=== PATIENT | female | born 1980 | race Caucasian/White ===

== ENCOUNTER 2021-10-16 12:31 | Inpatient (IN) | payer OTHER ==
[2021-10-16 14:00] VITALS: BMI 18.6
[2021-10-16] MEDS ORDERED: ACETAMINOPHEN 325 MG TABLET (FP) PO PRN ×2 (16:31)
[2021-10-16] MEDS ORDERED: IBUPROFEN 600 MG TABLET (FP) PO PRN (16:31)
[2021-10-16] MEDS ORDERED: chlordiazePOXIDE HCL 25 MG CAPSULE PO PRN (16:31)
[2021-10-16] MEDS ORDERED: MAG HYDROX/AL HYDROX/SIMETH 30 ML UNIT-DOSE CUP PO PRN (16:31)
[2021-10-16] MEDS ORDERED: DICYCLOMINE HCL 10 MG CAPSULE PO PRN (16:31)
[2021-10-16] MEDS ORDERED: BISMUTH SUBSALICYLATE 524 MG/30 ML PO PRN (16:31)
[2021-10-16] MEDS ORDERED: MAGNESIUM HYDROX 2400MG/30ML ORAL SUSPENSION 30 ML CUP PO PRN (16:31)
[2021-10-16] MEDS ORDERED: MAGNESIUM CITRATE 300 ML BOTTLE PO PRN (16:31)
[2021-10-16] MEDS ORDERED: METHOCARBAMOL 500 MG TABLET PO PRN (16:31)
[2021-10-16] MEDS ORDERED: BENZOCAINE/MENTHOL (CHLORASEPTIC ) LOZENGE MM PRN (16:31)
[2021-10-16] MEDS ORDERED: LOPERAMIDE HCL 2 MG CAPSULE PO PRN (16:31)
[2021-10-16] MEDS ORDERED: IBUPROFEN 400 MG TABLET (FP) PO PRN (16:31)
[2021-10-16] MEDS ORDERED: methaDONE HCL 10 MG TABLET PO ONE (18:00)
[2021-10-16] MEDS: chlordiazePOXIDE HCL 25 MG CAPSULE PO SCH ×2 (18:13→22:26)
[2021-10-16] MEDS: hydrOXYzine PAMOATE 25 MG CAPSULE (FP) PO SCH ×2 (18:13→22:26)
[2021-10-16] MEDS: ONDANSETRON *ODT* 4 MG TABLET SL PRN (18:18)
[2021-10-16] MEDS: MELATONIN 5 MG TABLETS PO SCH (22:26)
[2021-10-16] MEDS: THIAMINE HCL 100 MG TABLET (FP) PO SCH (22:26)
[2021-10-17] MEDS: chlordiazePOXIDE HCL 25 MG CAPSULE PO SCH ×4 (07:07→22:59)
[2021-10-17] MEDS: hydrOXYzine PAMOATE 25 MG CAPSULE (FP) PO SCH (07:08)
[2021-10-17] MEDS ORDERED: hydrOXYzine PAMOATE 25 MG CAPSULE (FP) PO PRN (09:58)
[2021-10-17] MEDS ORDERED: DULoxetine HCL 30 MG CAPSULE.DR PO SCH (10:00)
[2021-10-17 10:33] LABS: HEMATOCRIT 34.7 % (32.4-45.2); HEMOGLOBIN 11.7 GM/dL (10.7-15.3); MCH 30.8 pg (25.7-33.7); MCHC 33.9 g/dl (32.0-36.0); MEAN CELL VOLUME 90.9 fl (80-96); MEAN PLT VOLUME 8.5 fl (7.5-11.1); PLATELET COUNT 236 10^3/uL (134-434); RBC 3.81 M/mm3 (3.60-5.2); RDW 13.1 % (11.6-15.6); WHITE BLOOD COUNT 4.2 K/mm3 (4.0-10.0)
[2021-10-17 10:44] LABS: CALCIUM 8.2 mg/dL (8.5-10.1)
[2021-10-17 10:45] LABS: ALBUMIN 3.5 g/dl (3.4-5.0); BLOOD UREA NITROGEN 22.8 mg/dL (7-18)
[2021-10-17 10:48] LABS: CREATININE 0.9 mg/dL (0.55-1.3)
[2021-10-17 10:49] LABS: BILIRUBIN,TOTAL 0.9 mg/dL (0.2-1)
[2021-10-17] MEDS ORDERED: methaDONE HCL 10 MG TABLET PO ONE (11:40)
[2021-10-17] MEDS: NICOTINE 10 MG CARTRIDGE (INHALER) IH PRN (11:42)
[2021-10-17] MEDS ORDERED: methaDONE HCL 10 MG TABLET ONE (11:52)
[2021-10-17] MEDS ORDERED: methaDONE HCL 40 MG DISPERSABLE TABLET ONE (11:53)
[2021-10-17] MEDS: PRENATAL VITAMINS W/ FOLIC ACID TABLET (FP) PO SCH (11:56)
[2021-10-17] MEDS: ONDANSETRON *ODT* 4 MG TABLET SL PRN (17:52)
[2021-10-17] MEDS: THIAMINE HCL 100 MG TABLET (FP) PO SCH (22:07)
[2021-10-17] MEDS: MELATONIN 5 MG TABLETS PO SCH (22:07)
[2021-10-18] MEDS ORDERED: methaDONE HCL 10 MG TABLET ONE (04:52)
[2021-10-18] MEDS ORDERED: methaDONE HCL 40 MG DISPERSABLE TABLET ONE (04:52)
[2021-10-18] MEDS: chlordiazePOXIDE HCL 25 MG CAPSULE PO SCH ×4 (05:59→22:17)
[2021-10-18] MEDS ORDERED: methaDONE HCL 40 MG DISPERSABLE TABLET PO SCH (06:00)
[2021-10-18] MEDS: DULoxetine HCL 30 MG CAPSULE.DR PO SCH (10:15)
[2021-10-18] MEDS: PRENATAL VITAMINS W/ FOLIC ACID TABLET (FP) PO SCH (10:15)
[2021-10-18] MEDS: NICOTINE 10 MG CARTRIDGE (INHALER) IH PRN (19:39)
[2021-10-18] MEDS: MELATONIN 5 MG TABLETS PO SCH (22:17)
[2021-10-18] MEDS: THIAMINE HCL 100 MG TABLET (FP) PO SCH (22:17)
[2021-10-19] MEDS ORDERED: chlordiazePOXIDE HCL 10 MG CAPSULE PO PRN
[2021-10-19] MEDS ORDERED: methaDONE HCL 40 MG DISPERSABLE TABLET ONE (04:24)
[2021-10-19] MEDS ORDERED: methaDONE HCL 10 MG TABLET ONE (04:24)
[2021-10-19] MEDS: chlordiazePOXIDE HCL 10 MG CAPSULE PO SCH ×4 (05:46→23:43)
[2021-10-19] MEDS: DULoxetine HCL 30 MG CAPSULE.DR PO SCH (12:26)
[2021-10-19] MEDS: PRENATAL VITAMINS W/ FOLIC ACID TABLET (FP) PO SCH (12:26)
[2021-10-19] MEDS: ONDANSETRON *ODT* 4 MG TABLET SL PRN (21:39)
[2021-10-19] MEDS: MELATONIN 5 MG TABLETS PO SCH (23:43)
[2021-10-19] MEDS: THIAMINE HCL 100 MG TABLET (FP) PO SCH (23:43)
[2021-10-20] MEDS ORDERED: methaDONE HCL 40 MG DISPERSABLE TABLET ONE (04:27)
[2021-10-20] MEDS ORDERED: methaDONE HCL 10 MG TABLET ONE (04:27)
[2021-10-20] MEDS: chlordiazePOXIDE HCL 10 MG CAPSULE PO SCH ×2 (05:29→18:00)
[2021-10-20] MEDS: DULoxetine HCL 30 MG CAPSULE.DR PO SCH (09:57)
[2021-10-20] MEDS: NICOTINE 10 MG CARTRIDGE (INHALER) IH PRN (09:57)
[2021-10-20] MEDS: PRENATAL VITAMINS W/ FOLIC ACID TABLET (FP) PO SCH (09:57)
[2021-10-20] MEDS ORDERED: CALCIUM CARBONATE 650 MG TABLET PO ONE (20:00)
[2021-10-20] MEDS: THIAMINE HCL 100 MG TABLET (FP) PO SCH (23:10)
[2021-10-20] MEDS: MELATONIN 5 MG TABLETS PO SCH (23:10)
[2021-10-21] MEDS ORDERED: methaDONE HCL 40 MG DISPERSABLE TABLET ONE (04:10)
[2021-10-21] MEDS ORDERED: methaDONE HCL 10 MG TABLET ONE (04:10)
[2021-10-21] MEDS ORDERED: chlordiazePOXIDE HCL 10 MG CAPSULE PO ONE (05:00)
[2021-10-21] MEDS ORDERED: CALCIUM CARBONATE 650 MG TABLET PO SCH (07:00)
[2021-10-21] MEDS: PRENATAL VITAMINS W/ FOLIC ACID TABLET (FP) PO SCH (10:18)
[2021-10-21] MEDS: DULoxetine HCL 30 MG CAPSULE.DR PO SCH (10:18)
[2021-10-21] MEDS: NICOTINE 10 MG CARTRIDGE (INHALER) IH PRN (10:19)
[2021-10-21] MEDS: ONDANSETRON *ODT* 4 MG TABLET SL PRN (12:24)
[2021-10-21 12:30] VITALS: RESP 18
[2021-10-21 17:20] VITALS: BP 97/51; PULSE 53; TEMP 97.3
== END 2021-10-21 21:28 | disposition other institution (70) | DRG 773 ==
LOC: YASAS 12:31 → Y6N 16:47 → Y3N 10-17 10:23 → Y6N 10-17 10:23 → Y3N 10-17 11:15
PROVIDERS: ADMIT Allergy & Immunology; ATTEND Surgery
PROC: HZ2ZZZZ Detoxification Services for Substance Abuse Treatment (ICD-10-PCS; principal; 2021-10-16)
DX: F13.230 Sedative, hypnotic or anxiolytic dependence with withdrawal, uncomplicated (principal); F11.20 Opioid dependence, uncomplicated; F14.20 Cocaine dependence, uncomplicated; F17.210 Nicotine dependence, cigarettes, uncomplicated; F41.9 Anxiety disorder, unspecified; F31.9 Bipolar disorder, unspecified; R79.89 Other specified abnormal findings of blood chemistry; E83.51 Hypocalcemia; U07.0 Vaping-related disorder; Z86.73 Personal history of transient ischemic attack (TIA), and cerebral infarction without residual deficits; Z56.0 Unemployment, unspecified
CPT/HCPCS: 36415; 80053; 81025; 85027; 86780; 87811; C9803-CS; Q0162; U0003; U0005

== ENCOUNTER 2021-10-21 22:00 | Inpatient (IN) | payer OTHER ==
[2021-10-22] MEDS ORDERED: MAG HYDROX/AL HYDROX/SIMETH 30 ML UNIT-DOSE CUP PO PRN (00:04)
[2021-10-22] MEDS ORDERED: P-EPHED 60MG/TRIPROLIDI 2.5MG TABLET PO PRN (00:04)
[2021-10-22] MEDS ORDERED: MAGNESIUM CITRATE 300 ML BOTTLE PO PRN (00:04)
[2021-10-22] MEDS ORDERED: BENZOCAINE/MENTHOL (CHLORASEPTIC ) LOZENGE MM PRN (00:04)
[2021-10-22] MEDS ORDERED: hydrOXYzine PAMOATE 25 MG CAPSULE (FP) PO PRN (00:04)
[2021-10-22] MEDS ORDERED: NICOTINE POLACRILEX 2 MG GUM BUC PRN (00:04)
[2021-10-22] MEDS ORDERED: ACETAMINOPHEN 325 MG TABLET (FP) PO PRN (00:04)
[2021-10-22] MEDS ORDERED: LOPERAMIDE HCL 2 MG CAPSULE PO PRN (00:04)
[2021-10-22] MEDS ORDERED: guaiFENesin 200 MG/10 ML 10 ML UNIT-DOSE CUPS PO PRN (00:04)
[2021-10-22] MEDS ORDERED: methaDONE HCL 10 MG TABLET PO SCH (09:00)
[2021-10-22] MEDS ORDERED: methaDONE HCL 10 MG TABLET ONE (09:04)
[2021-10-22] MEDS ORDERED: methaDONE HCL 40 MG DISPERSABLE TABLET ONE (09:04)
[2021-10-22] MEDS: PRENATAL VITAMINS W/ FOLIC ACID TABLET (FP) PO SCH (09:12)
[2021-10-22] MEDS ORDERED: TUBERCULIN PPD 5 TU/0.1ML VIAL ID ONE (10:21)
[2021-10-22] MEDS ORDERED: DULoxetine HCL 30 MG CAPSULE.DR PO ONE (11:57)
[2021-10-22] MEDS: ARIPiprazole 10 MG TABLET PO SCH (12:06)
[2021-10-22] MEDS: DULoxetine HCL 60 MG CAPSULE.DR PO SCH (12:07)
[2021-10-22] MEDS: THIAMINE HCL 100 MG TABLET (FP) PO SCH (21:03)
[2021-10-22] MEDS ORDERED: MELATONIN 5 MG TABLETS PO SCH (22:00)
[2021-10-22] MEDS ORDERED: SUVOREXANT 10 MG TABLET PO PRN (22:00)
[2021-10-22] MEDS: CALCIUM (OYSTER SHELL) 500 MG TABLET (FP) PO SCH (23:00)
[2021-10-23] MEDS: ONDANSETRON *ODT* 4 MG TABLET SL PRN (11:32)
[2021-10-23] MEDS: DULoxetine HCL 60 MG CAPSULE.DR PO SCH (12:07)
[2021-10-23] MEDS: ARIPiprazole 10 MG TABLET PO SCH (12:07)
[2021-10-23] MEDS: PRENATAL VITAMINS W/ FOLIC ACID TABLET (FP) PO SCH (12:07)
[2021-10-23] MEDS: THIAMINE HCL 100 MG TABLET (FP) PO SCH (23:21)
[2021-10-23] MEDS: CALCIUM (OYSTER SHELL) 500 MG TABLET (FP) PO SCH (23:21)
[2021-10-24] MEDS: IBUPROFEN 400 MG TABLET (FP) PO PRN (06:46)
[2021-10-24] MEDS ORDERED: DULoxetine HCL 30 MG CAPSULE.DR PO ONE (08:07)
[2021-10-24] MEDS: PRENATAL VITAMINS W/ FOLIC ACID TABLET (FP) PO SCH (10:02)
[2021-10-24] MEDS: ARIPiprazole 10 MG TABLET PO SCH (10:02)
[2021-10-24] MEDS: DULoxetine HCL 60 MG CAPSULE.DR PO SCH (10:03)
[2021-10-24] MEDS: ONDANSETRON *ODT* 4 MG TABLET SL PRN (10:05)
[2021-10-24] MEDS: THIAMINE HCL 100 MG TABLET (FP) PO SCH (21:30)
[2021-10-24] MEDS: CALCIUM (OYSTER SHELL) 500 MG TABLET (FP) PO SCH (21:30)
[2021-10-25] MEDS ORDERED: DULoxetine HCL 30 MG CAPSULE.DR PO ONE (09:00)
[2021-10-25] MEDS: PRENATAL VITAMINS W/ FOLIC ACID TABLET (FP) PO SCH (10:10)
[2021-10-25] MEDS: ARIPiprazole 10 MG TABLET PO SCH (10:10)
[2021-10-25] MEDS: DULoxetine HCL 60 MG CAPSULE.DR PO SCH (10:11)
[2021-10-25] MEDS: CALCIUM (OYSTER SHELL) 500 MG TABLET (FP) PO SCH (21:32)
[2021-10-25] MEDS: THIAMINE HCL 100 MG TABLET (FP) PO SCH (21:32)
[2021-10-25] MEDS: SUVOREXANT 10 MG TABLET PO PRN (21:33)
[2021-10-25] MEDS: MAGNESIUM HYDROX 2400MG/30ML ORAL SUSPENSION 30 ML CUP PO PRN (21:35)
[2021-10-25] MEDS: NICOTINE 10 MG CARTRIDGE (INHALER) IH PRN (22:07)
[2021-10-26] MEDS: MAGNESIUM HYDROX 2400MG/30ML ORAL SUSPENSION 30 ML CUP PO PRN (06:47)
[2021-10-26] MEDS ORDERED: DULoxetine HCL 30 MG CAPSULE.DR PO ONE (09:09)
[2021-10-26] MEDS: ARIPiprazole 10 MG TABLET PO SCH (09:58)
[2021-10-26] MEDS: PRENATAL VITAMINS W/ FOLIC ACID TABLET (FP) PO SCH (09:58)
[2021-10-26] MEDS: DULoxetine HCL 60 MG CAPSULE.DR PO SCH (09:59)
[2021-10-26] MEDS: THIAMINE HCL 100 MG TABLET (FP) PO SCH (21:35)
[2021-10-26] MEDS: SUVOREXANT 10 MG TABLET PO PRN (21:35)
[2021-10-26] MEDS: CALCIUM (OYSTER SHELL) 500 MG TABLET (FP) PO SCH (21:35)
[2021-10-27] MEDS: ONDANSETRON *ODT* 4 MG TABLET SL PRN (03:48)
[2021-10-27] MEDS ORDERED: ONDANSETRON *ODT* 4 MG TABLET SL ONE (04:05)
[2021-10-27] MEDS ORDERED: DULoxetine HCL 30 MG CAPSULE.DR PO ONE (09:03)
[2021-10-27] MEDS: ARIPiprazole 10 MG TABLET PO SCH (10:01)
[2021-10-27] MEDS: PRENATAL VITAMINS W/ FOLIC ACID TABLET (FP) PO SCH (10:01)
[2021-10-27] MEDS: DULoxetine HCL 60 MG CAPSULE.DR PO SCH (10:02)
[2021-10-27] MEDS: NICOTINE 10 MG CARTRIDGE (INHALER) IH PRN (14:48)
[2021-10-27] MEDS: THIAMINE HCL 100 MG TABLET (FP) PO SCH (22:07)
[2021-10-27] MEDS: CALCIUM (OYSTER SHELL) 500 MG TABLET (FP) PO SCH (22:07)
[2021-10-28] MEDS ORDERED: ARIPiprazole 5 MG TABLET ONE (09:11)
[2021-10-28] MEDS: DULoxetine HCL 60 MG CAPSULE.DR PO SCH (10:27)
[2021-10-28] MEDS: ARIPiprazole 10 MG TABLET PO SCH (10:27)
[2021-10-28] MEDS: PRENATAL VITAMINS W/ FOLIC ACID TABLET (FP) PO SCH (10:27)
[2021-10-28] MEDS: NICOTINE 10 MG CARTRIDGE (INHALER) IH PRN (10:51)
[2021-10-28] MEDS: THIAMINE HCL 100 MG TABLET (FP) PO SCH (21:44)
[2021-10-28] MEDS: CALCIUM (OYSTER SHELL) 500 MG TABLET (FP) PO SCH (21:44)
[2021-10-28] MEDS ORDERED: SUVOREXANT 10 MG TABLET PO PRN (22:00)
[2021-10-29] MEDS: ARIPiprazole 10 MG TABLET PO SCH (10:23)
[2021-10-29] MEDS: DULoxetine HCL 60 MG CAPSULE.DR PO SCH (10:23)
[2021-10-29] MEDS: PRENATAL VITAMINS W/ FOLIC ACID TABLET (FP) PO SCH (10:23)
[2021-10-29] MEDS: NICOTINE 10 MG CARTRIDGE (INHALER) IH PRN (10:59)
[2021-10-29] MEDS: CALCIUM (OYSTER SHELL) 500 MG TABLET (FP) PO SCH (21:33)
[2021-10-29] MEDS: THIAMINE HCL 100 MG TABLET (FP) PO SCH (21:33)
[2021-10-30] MEDS: PRENATAL VITAMINS W/ FOLIC ACID TABLET (FP) PO SCH (10:01)
[2021-10-30] MEDS: ARIPiprazole 10 MG TABLET PO SCH (10:02)
[2021-10-30] MEDS: DULoxetine HCL 60 MG CAPSULE.DR PO SCH (10:02)
[2021-10-30] MEDS: CALCIUM (OYSTER SHELL) 500 MG TABLET (FP) PO SCH (21:47)
[2021-10-30] MEDS: THIAMINE HCL 100 MG TABLET (FP) PO SCH (21:47)
[2021-10-31] MEDS: PRENATAL VITAMINS W/ FOLIC ACID TABLET (FP) PO SCH (10:21)
[2021-10-31] MEDS: ARIPiprazole 10 MG TABLET PO SCH (10:22)
[2021-10-31] MEDS: DULoxetine HCL 60 MG CAPSULE.DR PO SCH (10:22)
[2021-10-31] MEDS: THIAMINE HCL 100 MG TABLET (FP) PO SCH (21:51)
[2021-10-31] MEDS: CALCIUM (OYSTER SHELL) 500 MG TABLET (FP) PO SCH (21:51)
[2021-10-31] MEDS ORDERED: SUVOREXANT 5 MG TABLET PO PRN (22:00)
[2021-11-01] MEDS: ARIPiprazole 10 MG TABLET PO SCH (10:26)
[2021-11-01] MEDS: PRENATAL VITAMINS W/ FOLIC ACID TABLET (FP) PO SCH (10:26)
[2021-11-01] MEDS: DULoxetine HCL 60 MG CAPSULE.DR PO SCH (10:27)
[2021-11-01] MEDS: CALCIUM (OYSTER SHELL) 500 MG TABLET (FP) PO SCH (21:48)
[2021-11-01] MEDS: THIAMINE HCL 100 MG TABLET (FP) PO SCH (21:48)
[2021-11-02] MEDS ORDERED: DULoxetine HCL 30 MG CAPSULE.DR PO ONE (09:06)
[2021-11-02] MEDS: PRENATAL VITAMINS W/ FOLIC ACID TABLET (FP) PO SCH (10:37)
[2021-11-02] MEDS: DULoxetine HCL 60 MG CAPSULE.DR PO SCH (10:38)
[2021-11-02] MEDS: ARIPiprazole 10 MG TABLET PO SCH (10:38)
[2021-11-02] MEDS: THIAMINE HCL 100 MG TABLET (FP) PO SCH (22:12)
[2021-11-02] MEDS: CALCIUM (OYSTER SHELL) 500 MG TABLET (FP) PO SCH (22:12)
[2021-11-03] MEDS ORDERED: DULoxetine HCL 30 MG CAPSULE.DR PO ONE (09:14)
[2021-11-03] MEDS: PRENATAL VITAMINS W/ FOLIC ACID TABLET (FP) PO SCH (10:15)
[2021-11-03] MEDS: ARIPiprazole 10 MG TABLET PO SCH (10:15)
[2021-11-03] MEDS: DULoxetine HCL 60 MG CAPSULE.DR PO SCH (10:16)
[2021-11-03] MEDS ORDERED: SUVOREXANT 5 MG TABLET PO PRN (22:00)
[2021-11-03] MEDS: THIAMINE HCL 100 MG TABLET (FP) PO SCH (22:44)
[2021-11-03] MEDS: CALCIUM (OYSTER SHELL) 500 MG TABLET (FP) PO SCH (22:44)
[2021-11-04] MEDS ORDERED: ARIPiprazole 5 MG TABLET ONE (09:24)
[2021-11-04] MEDS: PRENATAL VITAMINS W/ FOLIC ACID TABLET (FP) PO SCH (10:33)
[2021-11-04] MEDS: DULoxetine HCL 60 MG CAPSULE.DR PO SCH (10:33)
[2021-11-04] MEDS: ARIPiprazole 10 MG TABLET PO SCH (10:34)
[2021-11-04] MEDS: CALCIUM (OYSTER SHELL) 500 MG TABLET (FP) PO SCH (21:59)
[2021-11-04] MEDS: THIAMINE HCL 100 MG TABLET (FP) PO SCH (21:59)
[2021-11-05] MEDS: DULoxetine HCL 60 MG CAPSULE.DR PO SCH (10:20)
[2021-11-05] MEDS: ARIPiprazole 10 MG TABLET PO SCH (10:20)
[2021-11-05] MEDS: PRENATAL VITAMINS W/ FOLIC ACID TABLET (FP) PO SCH (10:20)
[2021-11-05] MEDS: THIAMINE HCL 100 MG TABLET (FP) PO SCH (22:03)
[2021-11-05] MEDS: CALCIUM (OYSTER SHELL) 500 MG TABLET (FP) PO SCH (22:03)
[2021-11-06] MEDS ORDERED: DULoxetine HCL 30 MG CAPSULE.DR PO ONE (08:43)
[2021-11-06] MEDS: PRENATAL VITAMINS W/ FOLIC ACID TABLET (FP) PO SCH (10:18)
[2021-11-06] MEDS: DULoxetine HCL 60 MG CAPSULE.DR PO SCH (10:19)
[2021-11-06] MEDS: ARIPiprazole 10 MG TABLET PO SCH (10:19)
[2021-11-06] MEDS: CALCIUM (OYSTER SHELL) 500 MG TABLET (FP) PO SCH (21:45)
[2021-11-06] MEDS: THIAMINE HCL 100 MG TABLET (FP) PO SCH (21:46)
[2021-11-07] MEDS ORDERED: DULoxetine HCL 30 MG CAPSULE.DR PO ONE (09:20)
[2021-11-07] MEDS: ARIPiprazole 10 MG TABLET PO SCH (10:14)
[2021-11-07] MEDS: PRENATAL VITAMINS W/ FOLIC ACID TABLET (FP) PO SCH (10:14)
[2021-11-07] MEDS: DULoxetine HCL 60 MG CAPSULE.DR PO SCH (10:14)
[2021-11-07] MEDS: THIAMINE HCL 100 MG TABLET (FP) PO SCH (23:32)
[2021-11-07] MEDS: CALCIUM (OYSTER SHELL) 500 MG TABLET (FP) PO SCH (23:32)
[2021-11-08] MEDS ORDERED: DULoxetine HCL 30 MG CAPSULE.DR PO ONE (08:59)
[2021-11-08] MEDS: ARIPiprazole 10 MG TABLET PO SCH (10:18)
[2021-11-08] MEDS: DULoxetine HCL 60 MG CAPSULE.DR PO SCH (10:18)
[2021-11-08] MEDS: PRENATAL VITAMINS W/ FOLIC ACID TABLET (FP) PO SCH (10:19)
[2021-11-08] MEDS: THIAMINE HCL 100 MG TABLET (FP) PO SCH (21:53)
[2021-11-08] MEDS: CALCIUM (OYSTER SHELL) 500 MG TABLET (FP) PO SCH (21:53)
[2021-11-09] MEDS ORDERED: DULoxetine HCL 30 MG CAPSULE.DR PO ONE (09:13)
[2021-11-09] MEDS: ARIPiprazole 10 MG TABLET PO SCH (10:15)
[2021-11-09] MEDS: PRENATAL VITAMINS W/ FOLIC ACID TABLET (FP) PO SCH (10:16)
[2021-11-09] MEDS: DULoxetine HCL 60 MG CAPSULE.DR PO SCH (10:17)
[2021-11-09] MEDS: THIAMINE HCL 100 MG TABLET (FP) PO SCH (21:39)
[2021-11-09] MEDS: CALCIUM (OYSTER SHELL) 500 MG TABLET (FP) PO SCH (21:39)
[2021-11-09] MEDS ORDERED: SUVOREXANT 5 MG TABLET PO PRN (22:00)
[2021-11-10] MEDS ORDERED: DULoxetine HCL 30 MG CAPSULE.DR PO ONE (09:11)
[2021-11-10] MEDS: ARIPiprazole 10 MG TABLET PO SCH (10:18)
[2021-11-10] MEDS: DULoxetine HCL 60 MG CAPSULE.DR PO SCH (10:18)
[2021-11-10] MEDS: PRENATAL VITAMINS W/ FOLIC ACID TABLET (FP) PO SCH (10:18)
[2021-11-10] MEDS: IBUPROFEN 400 MG TABLET (FP) PO PRN (12:08)
[2021-11-10] MEDS: CALCIUM (OYSTER SHELL) 500 MG TABLET (FP) PO SCH (22:30)
[2021-11-10] MEDS: THIAMINE HCL 100 MG TABLET (FP) PO SCH (22:30)
[2021-11-11] MEDS ORDERED: DULoxetine HCL 30 MG CAPSULE.DR PO ONE (09:25)
[2021-11-11] MEDS: PRENATAL VITAMINS W/ FOLIC ACID TABLET (FP) PO SCH (10:45)
[2021-11-11] MEDS: DULoxetine HCL 60 MG CAPSULE.DR PO SCH (10:46)
[2021-11-11] MEDS: ARIPiprazole 10 MG TABLET PO SCH (10:46)
[2021-11-11] MEDS: CALCIUM (OYSTER SHELL) 500 MG TABLET (FP) PO SCH (21:47)
[2021-11-11] MEDS: THIAMINE HCL 100 MG TABLET (FP) PO SCH (21:47)
[2021-11-12] MEDS ORDERED: DULoxetine HCL 30 MG CAPSULE.DR PO ONE (09:06)
[2021-11-12] MEDS: PRENATAL VITAMINS W/ FOLIC ACID TABLET (FP) PO SCH (09:58)
[2021-11-12] MEDS: ARIPiprazole 10 MG TABLET PO SCH (09:58)
[2021-11-12] MEDS: DULoxetine HCL 60 MG CAPSULE.DR PO SCH (09:59)
[2021-11-12] MEDS: CALCIUM (OYSTER SHELL) 500 MG TABLET (FP) PO SCH (21:47)
[2021-11-12] MEDS: THIAMINE HCL 100 MG TABLET (FP) PO SCH (21:47)
[2021-11-12] MEDS ORDERED: SUVOREXANT 5 MG TABLET PO PRN (22:00)
[2021-11-13 07:18] VITALS: RESP 18
[2021-11-13] MEDS ORDERED: DULoxetine HCL 30 MG CAPSULE.DR PO ONE (08:18)
[2021-11-13] MEDS: DULoxetine HCL 60 MG CAPSULE.DR PO SCH (10:03)
[2021-11-13] MEDS: PRENATAL VITAMINS W/ FOLIC ACID TABLET (FP) PO SCH (10:03)
[2021-11-13] MEDS: ARIPiprazole 10 MG TABLET PO SCH (10:03)
[2021-11-13] MEDS: THIAMINE HCL 100 MG TABLET (FP) PO SCH (21:30)
[2021-11-13] MEDS: CALCIUM (OYSTER SHELL) 500 MG TABLET (FP) PO SCH (21:30)
[2021-11-14 07:16] VITALS: BP 101/69; PULSE 77; TEMP 97.5
[2021-11-14] MEDS ORDERED: DULoxetine HCL 30 MG CAPSULE.DR PO ONE (08:30)
[2021-11-14] MEDS: ARIPiprazole 10 MG TABLET PO SCH (09:07)
[2021-11-14] MEDS: PRENATAL VITAMINS W/ FOLIC ACID TABLET (FP) PO SCH (09:07)
[2021-11-14] MEDS: DULoxetine HCL 60 MG CAPSULE.DR PO SCH (09:07)
== END 2021-11-14 09:43 | disposition home or self-care (01) | DRG 772 ==
LOC: YASAS 22:00 → Y5N 22:01
PROVIDERS: ADMIT Allergy & Immunology; ATTEND Psychiatry & Neurology Pain Medicine
PROC: HZ42ZZZ Group Counseling for Substance Abuse Treatment, Cognitive-Behavioral (ICD-10-PCS; principal; 2021-10-21)
DX: F11.20 Opioid dependence, uncomplicated (principal); F10.20 Alcohol dependence, uncomplicated; F13.20 Sedative, hypnotic or anxiolytic dependence, uncomplicated; F14.20 Cocaine dependence, uncomplicated; F31.9 Bipolar disorder, unspecified; F41.9 Anxiety disorder, unspecified; R42 Dizziness and giddiness; R63.4 Abnormal weight loss; Z68.1 Body mass index [BMI] 19.9 or less, adult; W19.XXXA Unspecified fall, initial encounter; Y93.9 Activity, unspecified; Y92.239 Unspecified place in hospital as the place of occurrence of the external cause; Z87.891 Personal history of nicotine dependence; Z72.89 Other problems related to lifestyle
CPT/HCPCS: Q0162